=== PATIENT | male | born 1965 | race Two or more races ===

== ENCOUNTER 2019-10-11 08:56 | Emergency (ER) | payer SELFPAY ==
[~2019-10-11] VITALS: Ht 165.1 cm; Wt 85.9 kg
[2019-10-11 09:03] VITALS: BP 154/93
--- NOTE | 2019-10-11 10:40 | NUR ---
[employer]: PT TO ROOM FROM LOBBY
[2019-10-11] MEDS ORDERED: OXYcodone/APAP 5/325MG TABLET PO ONE (11:00)
[2019-10-11] MEDS ORDERED: INDOMETHACIN 25 MG CAPSULE PO ONE (11:00)
[2019-10-11] MEDS ORDERED: OXYcodone/APAP 5/325MG TABLET ONE (11:19)
--- NOTE | 2019-10-11 11:54 | NUR ---
MEDICATED PER EMAR FOR LEFT KNEE PAIN AT 8/10 ICE PACK APPLIED
== END 2019-10-11 12:42 | disposition home or self-care (01) ==
LOC: ED 12:36
DX: M25.562 Pain in left knee (principal)
CPT/HCPCS: 29505; 99283